=== PATIENT | female | born 1935 | race African-American/Black ===

== ENCOUNTER → 2017-03-23 | Outpatient (CLI) | payer MEDICARE ==
[~2017-03-23] MED LIST: ACET-2267 PO; ASCO10006 PO; CALC600T12 PO; CHOL500044 PO; CINN500C2 PO; DIPH25CA79 PO; ECHI1CAP PO; FOLI1TAB6 PO; IBUP-1780 PO; LUTE20TA PO; LUTE40CA PO; MAGN400T39 PO; NIAC500T24 PO; OMEG-109 PO; ROSU10TA PO; SIME125C85 PO; VALS1TAB80 PO
== END ==
LOC: CARD 08:31
PROVIDERS: ATTEND Physician Assistant
DX: I35.0 Nonrheumatic aortic (valve) stenosis (principal); I25.10 Atherosclerotic heart disease of native coronary artery without angina pectoris; I10 Essential (primary) hypertension; Q21.1 Atrial septal defect
CPT/HCPCS: 93306

== ENCOUNTER → 2019-06-18 | Outpatient (CLI) | payer MEDICARE ==
[~2019-06-18] MED LIST changes: -ROSU10TA PO; +ROSU10TA22 PO; -SIME125C85 PO; +SIME125C86 PO
== END ==
LOC: CARD 11:11
PROVIDERS: ATTEND Physician Assistant
DX: I08.0 Rheumatic disorders of both mitral and aortic valves (principal); I25.10 Atherosclerotic heart disease of native coronary artery without angina pectoris; Q21.1 Atrial septal defect; I10 Essential (primary) hypertension